=== PATIENT | male | born 1955 | race Asian ===

== ENCOUNTER → 2017-02-16 | Outpatient (CLI) | payer BC | LOC: COL.RAD 07:07 | DX: K76.89 Other specified diseases of liver (principal) ==

== ENCOUNTER → 2018-06-28 | Outpatient (CLI) | payer BC | LOC: COL.RAD 07:15 | DX: K76.89 Other specified diseases of liver (principal); N28.1 Cyst of kidney, acquired ==

== ENCOUNTER → 2018-07-11 | Outpatient (CLI) | payer BC | LOC: COL.RAD 07:45 | DX: R10.13 Epigastric pain (principal); R14.0 Abdominal distension (gaseous) | CPT/HCPCS: A9541 ==

== ENCOUNTER → 2018-07-12 | Outpatient (CLI) | payer BC | LOC: COL.RAD 07:30 | DX: K76.89 Other specified diseases of liver (principal) | CPT/HCPCS: Q9967 ==

== ENCOUNTER 2019-08-30 10:30 | Day surgery (SDC) | payer BC ==
[~2019-08-30] VITALS: Ht 167.6 cm; Wt 71.5 kg
[2019-08-30 11:09] VITALS: BP 129/89; PULSE 69; TEMP 98.2
[2019-08-30 12:20] VITALS: BP 115/78; PULSE 64; TEMP 98
[2019-08-30 12:35] VITALS: BP 111/75; PULSE 55
[2019-08-30 12:50] VITALS: BP 110/79; PULSE 53
--- NOTE | 2019-08-30 13:27 | NUR ---
PT RETURNED TO BAY #6 FROM ENDO PROCEDURE ROOM PER CART. PT AWAKE AND GROGGY. ORIENTATED X3. LUNGS CLEAR X4, HRR, BOWEL SOUNDS AUDIBLE. PT DENIED C/O PAIN OR NAUSEA. WATER WAS OFFERED TO PT AND TOLERATED WITHOUT DIFFICUTLY. VVS, AFEBRILE. WILL CONT TO MONITOR PROGRESS.
--- NOTE | 2019-08-30 13:31 | NUR ---
PT CONTINUES TO TOLERATE FLUIDS, REFUSES FOOD AT THIS TIME AND STATES, 'I WANT TO EAT AT HOME, IM HUNGRY.' PT REQUESTING THAT I CALL HIS TO PICK PT UP THEY WILL EAT AT HOME. DENIES NAUSEA, VOMITING. VSS. CALLED.
--- NOTE | 2019-08-30 13:34 | NUR ---
PT A/OX3, DENIES, NAUSEA AND VOMITING. TOLERATING FLUIDS, CONT TO REFUSE SOLID FOOD AND 'WANTS TO EAT AT HOME.' DENIES PAIN. #22 DC'D PER RIGHT HAND, PT TOLERATED WELL. NO REDNESS, SWELLING OR DRAINAGE NOTED AT THE IV SITE. DISMISSAL INSTRUCTIONS GIVEN AND PT VOICES UNDERSTANDING. PT CALLED AND WAS TO MEET PT IN PT ENTRANCE. PT TAKEN OUT PER WC. PT PARKED IN FRONT OF VISITORS PARKING. PT GOT OUT OF WC AND STARTED WALKING TOWARD VISITOR ENTRANCE STATING, 'I BE ALRIGHT, THANK-YOU.' GAIT STEADY.
== END 2019-08-30 13:00 | disposition home or self-care (01) ==
LOC: SDCO 10:30
DX: K21.0 Gastro-esophageal reflux disease with esophagitis (principal); K25.7 Chronic gastric ulcer without hemorrhage or perforation; K22.70 Barrett's esophagus without dysplasia; Z86.010 Personal history of colon polyps; F17.210 Nicotine dependence, cigarettes, uncomplicated
CPT/HCPCS: J2250; J3010; J7030

== ENCOUNTER → 2019-11-29 | Outpatient (CLI) | payer BC | LOC: COL.RAD 13:24 | DX: R07.9 Chest pain, unspecified (principal); M54.2 Cervicalgia; G89.29 Other chronic pain | CPT/HCPCS: Q9967 ==

== ENCOUNTER → 2022-02-24 | Outpatient (CLI) | payer BC | LOC: COL.RAD 06:58 | DX: K76.89 Other specified diseases of liver (principal); N28.1 Cyst of kidney, acquired ==

== ENCOUNTER → 2023-11-29 | Outpatient (CLI) | payer BC ==
[~2023-11-29] VITALS: Ht 167.7 cm; Wt 72.0 kg
[~2023-11-29] MED LIST: BALANCE B-1001 TA1 PO; CALCIUM 600MG+D1 TAB PO; FISH OIL 1000MG1 CAP PO; Regadenoson 0.08 MG/ML 5 ML SYRINGE IV SCH
[2023-11-29 08:46] VITALS: BP 123/79; PULSE 61; TEMP 97.5
[2023-11-29 09:54] VITALS: BP 136/84; PULSE 88
[2023-11-29 09:57] VITALS: BP 120/78; PULSE 91
[2023-11-29 09:58] VITALS: BP 131/80; PULSE 95
[2023-11-29 09:59] VITALS: BP 127/78; PULSE 91
== END ==
LOC: COL.RAD 05:13
DX: R07.9 Chest pain, unspecified (principal)
CPT/HCPCS: A9500-JZ; J2785

== ENCOUNTER → 2023-12-03 | Outpatient (CLI) | payer BC ==
[~2023-12-03] MED LIST changes: -Regadenoson 0.08 MG/ML 5 ML SYRINGE IV SCH
== END ==
LOC: COL.RAD 14:07
DX: Z12.2 Encounter for screening for malignant neoplasm of respiratory organs (principal); F17.210 Nicotine dependence, cigarettes, uncomplicated